=== PATIENT | male | born 1960 | race Caucasian/White ===

== ENCOUNTER 2018-03-27 07:42 | Emergency (ER) | payer OTHER ==
--- NOTE | 2018-03-27 08:12 | ER Report ---
History and Physical Time Seen By MD: 08:00 Hx. 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 Patient noticed that every activity he attempted causes more shortness of breath than normal. This was significantly worse with exertion. He has not had this before and has been through [place] before. He denies recent swelling in the legs, though he does travel frequently as truck sales representative. He has not had any chest pain, nausea, vomiting, fever, chills, cough. He has history of open heart surgery, last stress test was 4 years ago and was normal. He continues to smoke a pack a day. REVIEW OF SYSTEMS: Constitutional: No fever, no chills. Eyes: No discharge. ENT: No sore throat. Cardiovascular: No chest pain, no palpitations. Respiratory: above Gastrointestinal: No abdominal pain, no vomiting. Genitourinary: no dysuria Musculoskeletal: No back pain. Skin: No rashes. Neurological: No headache. Remainder of the 14 system rev: Yes Allergies: Coded Allergies: tramadol (Verified Allergy, Unknown, 03/27/18) Home Meds Active Scripts Prednisone (PREDNISONE) 20 Mg Tablet, 40 MG PO QDAY for 5 Days, #10 TAB Prov:DENICE CHAMPAGNE MD 03/27/18 Albuterol Sulfate 90 Mcg/Act (PROAIR HFA 90 MCG/ACT) 8.5 Gm Hfa.aer.ad, 2 PUFF IH Q4-6H for shortness of breath, #1 INHALER Prov:DENICE CHAMPAGNE MD 03/27/18 Reported Medications Amlodipine Besylate (AMLODIPINE BESYLATE) 5 Mg Tablet, 1 TAB PO QDAY, TAB 03/27/18 Atenolol (ATENOLOL) 50 Mg Tablet, 1 TAB PO QDAY, TAB 03/27/18 Lisinopril (LISINOPRIL) 40 Mg Tablet, 40 MG PO QDAY, TAB 03/27/18 Vardenafil Hcl (LEVITRA) 10 Mg Tablet, 10 MG PO QDAY, #10 TAB 03/27/18 Hydrochlorothiazide (HYDROCHLOROTHIAZIDE) 25 Mg Tablet, 1 TAB PO QDAY, TAB 03/27/18 Aspirin (ASPIRIN) 325 Mg Tablet, 325 MG PO Q4-6H PRN for PROPHYLACTIC, TAB 03/27/18 Hx Smoking: Yes Hx Alcohol Use: Yes (COUPLE TIMES A WEEK ) Constitutional Vital Sign - Last 24 Hours 03/27/18 03/27/18 03/27/18 03/27/18 07:42 07:46 07:47 07:57 Temp 98.2 Pulse ??? 75 66 Resp 20 B/P (MAP) 155/92 (113) 155/92 Pulse Ox 84 89 O2 Delivery Room Air 03/27/18 03/27/18 03/27/18 03/27/18 08:12 08:13 08:23 08:23 Pulse 57 56 Resp 17 B/P (MAP) 139/95 (110) Pulse Ox 91 91 O2 Delivery Nasal Cannula O2 Flow Rate 3.0 03/27/18 03/27/18 03/27/18 03/27/18 08:27 08:30 08:30 08:42 Pulse 57 56 ??? Resp 13 17 B/P (MAP) 135/93 (107) Pulse Ox 94 03/27/18 03/27/18 03/27/18 03/27/18 08:57 09:00 09:12 09:27 Pulse 56 55 54 Resp 20 14 23 B/P (MAP) 115/77 (90) Pulse Ox 89 89 88 03/27/18 03/27/18 03/27/18 03/27/18 09:30 09:35 09:50 10:00 Pulse 54 56 Resp 17 35 B/P (MAP) 135/94 (108) 133/104 (114) Pulse Ox 87 88 03/27/18 03/27/18 03/27/18 03/27/18 10:05 10:20 10:30 10:35 Pulse 54 54 54 Resp 24 30 17 B/P (MAP) 115/83 (94) Pulse Ox 88 87 03/27/18 03/27/18 03/27/18 03/27/18 10:35 10:40 10:50 10:54 Pulse 54 58 Resp 17 26 B/P (MAP) 130/93 (105) Pulse Ox 92 87 O2 Delivery Nasal Cannula O2 Flow Rate 3.0 03/27/18 03/27/18 03/27/18 03/27/18 11:00 11:05 11:20 11:30 Pulse ??? 57 Resp 25 B/P (MAP) 95/85 (88) 138/75 (96) Pulse Ox 90 03/27/18 03/27/18 03/27/18 03/27/18 11:35 11:50 12:00 12:05 Pulse 56 69 77 Resp 22 13 18 B/P (MAP) 129/85 (100) Pulse Ox 90 89 92 03/27/18 03/27/18 03/27/18 03/27/18 12:20 12:30 12:35 12:50 Pulse ??? 55 60 Resp 25 38 B/P (MAP) 128/85 (99) Pulse Ox 89 88 03/27/18 03/27/18 03/27/18 13:00 13:05 13:20 Pulse 56 ??? Resp 15 B/P (MAP) 122/93 (103) Pulse Ox 88 Physical Exam General Appearance: The patient is alert, has no immediate need for airway protection and no signs of toxicity. Eyes: Pupils equal and round no pallor or injection. ENT, Mouth: Mucous membranes are slightly dry Respiratory: There are no retractions, lungs are clear to auscultation. Cardiovascular: Regular rate and rhythm. no m/r/g Gastrointestinal: Abdomen is soft and non tender, no masses, bowel sounds normal. Neurological: alert, moves all ext Skin: Warm and dry, no rashes. Musculoskeletal: Extremities are nontender, nonswollen and have full range of motion. DIFFERENTIAL DIAGNOSIS: After history and physical exam differential diagnosis was considered for shortness of breath including but not limited to pulmonary infectious process, COPD, asthma, pulmonary embolus and congestive heart failure. Medical Decision Making Data Points Result Diagram: 03/27/18 0752 03/27/18 0752 Laboratory Hematology Test 03/27/18 07:52 Red Blood Count 6.20 M/uL (4.00-5.60) Mean Corpuscular Volume 89.0 fL (80.0-96.0) Mean Corpuscular Hemoglobin 30.7 pg (26.0-33.0) Mean Corpuscular Hemoglobin Concent 34.5 g/dL (32.0-36.0) Red Cell Distribution Width 14.2 % (11.5-14.5) Mean Platelet Volume 8.6 fL (7.2-11.1) Neutrophils (%) (Auto) 67.2 % (39.4-72.5) Lymphocytes (%) (Auto) 20.8 % (17.6-49.6) Monocytes (%) (Auto) 9.4 % (4.1-12.4) Eosinophils (%) (Auto) 1.8 % (0.4-6.7) Basophils (%) (Auto) 0.8 % (0.3-1.4) Nucleated RBC Relative Count (auto) 0.3 /100WBC Neutrophils # (Auto) 5.0 K/uL (2.0-7.4) Lymphocytes # (Auto) 1.5 K/uL (1.3-3.6) Monocytes # (Auto) 0.7 K/uL (0.3-1.0) Eosinophils # (Auto) 0.1 K/uL (0.0-0.5) Basophils # (Auto) 0.1 K/uL (0.0-0.1) Nucleated RBC Absolute Count (auto) 0.02 K/uL Prothrombin Time 13.5 seconds (12.0-14.4) Prothromb Time International Ratio 1.03 Activated Partial Thromboplast Time 30 seconds (23-35) D-Dimer Quantitative (PE/DVT) 0.38 ug/ml (0-0.50) Sodium Level 137 mmol/L (137-145) Potassium Level 3.4 mmol/L (3.5-5.0) Chloride Level 104 mmol/L (98-107) Carbon Dioxide Level 24 mmol/L (22-30) Blood Urea Nitrogen 16 mg/dl (9-21) Creatinine 1.00 mg/dl (0.66-1.25) Glomerular Filtration Rate Calc > 60.0 Random Glucose 174 mg/dl (75-110) Calcium Level 9.7 mg/dl (8.4-10.2) Total Bilirubin 1.6 mg/dl (0.2-1.3) Aspartate Amino Transf (AST/SGOT) 68 U/L (0-35) Alanine Aminotransferase (ALT/SGPT) 86 U/L (0-56) Alkaline Phosphatase 84 U/L (0-126) Troponin I < 0.012 ng/ml B-Type Natriuretic Peptide 55 pg/ml (0-100) Total Protein 7.9 g/dl (6.3-8.2) Albumin 4.4 g/dl (3.5-5.0) Lipase 120 U/L (23-300) Chemistry Test 03/27/18 07:52 White Blood Count 7.4 k/uL (4.5-11.0) Red Blood Count 6.20 M/uL (4.00-5.60) Hemoglobin 19.0 g/dL (14.0-18.0) Hematocrit 55.1 % (42.0-52.0) Mean Corpuscular Volume 89.0 fL (80.0-96.0) Mean Corpuscular Hemoglobin 30.7 pg (26.0-33.0) Mean Corpuscular Hemoglobin Concent 34.5 g/dL (32.0-36.0) Red Cell Distribution Width 14.2 % (11.5-14.5) Platelet Count 229 K/uL (150-450) Mean Platelet Volume 8.6 fL (7.2-11.1) Neutrophils (%) (Auto) 67.2 % (39.4-72.5) Lymphocytes (%) (Auto) 20.8 % (17.6-49.6) Monocytes (%) (Auto) 9.4 % (4.1-12.4) Eosinophils (%) (Auto) 1.8 % (0.4-6.7) Basophils (%) (Auto) 0.8 % (0.3-1.4) Nucleated RBC Relative Count (auto) 0.3 /100WBC Neutrophils # (Auto) 5.0 K/uL (2.0-7.4) Lymphocytes # (Auto) 1.5 K/uL (1.3-3.6) Monocytes # (Auto) 0.7 K/uL (0.3-1.0) Eosinophils # (Auto) 0.1 K/uL (0.0-0.5) Basophils # (Auto) 0.1 K/uL (0.0-0.1) Nucleated RBC Absolute Count (auto) 0.02 K/uL Prothrombin Time 13.5 seconds (12.0-14.4) Prothromb Time International Ratio 1.03 Activated Partial Thromboplast Time 30 seconds (23-35) D-Dimer Quantitative (PE/DVT) 0.38 ug/ml (0-0.50) Glomerular Filtration Rate Calc > 60.0 Calcium Level 9.7 mg/dl (8.4-10.2) Total Bilirubin 1.6 mg/dl (0.2-1.3) Aspartate Amino Transf (AST/SGOT) 68 U/L (0-35) Alanine Aminotransferase (ALT/SGPT) 86 U/L (0-56) Alkaline Phosphatase 84 U/L (0-126) Troponin I < 0.012 ng/ml B-Type Natriuretic Peptide 55 pg/ml (0-100) Total Protein 7.9 g/dl (6.3-8.2) Albumin 4.4 g/dl (3.5-5.0) Lipase 120 U/L (23-300) Coagulation Test 03/27/18 07:52 Prothrombin Time 13.5 seconds Prothromb Time International Ratio 1.03 Activated Partial Thromboplast Time 30 seconds D-Dimer Quantitative (PE/DVT) 0.38 ug/ml EKG/Imaging EKG Interpretation 12 lead EKG: Rhythm: sinus bradycardia [place]: normal QRS: normal ST segments: normal Monitor Interpretation: Sinus Bradycardia ED Course/Re-evaluation ED Course 57 y/o m with probable undiagnosed COPD presents with dyspnea. ED evluation performed to r/o acs, pe, pneumonia, or other emergent etiology. Initial w/up unremarkable, however pt is persistently hypoxic, with dyspnea on exertion. He does improve with nebulizer treatment. After discusseion of r/b of admission v d'c; I offered admission but pt wishes to go home; I arranged for ; rx'd nicotine patch to help with smoking cessation; pt understands that he is not to smoke on 02; pt is comfortable with d'c. plan. Decision to Disposition Date: Mar 27, 2018 Decision to Disposition Time: 13:00 Depart Departure Latest Vital Signs Vital Signs Date Time Temp Pulse Resp B/P (MAP) Pulse Ox O2 Delivery O2 Flow Rate FiO2 03/27/18 13:20 ??? 03/27/18 13:05 15 88 03/27/18 13:00 122/93 (103) 03/27/18 10:35 Nasal Cannula 3.0 03/27/18 07:47 98.2 Impression: Primary Impression: Dyspnea Additional Impression: Hypoxia Condition: Improved Disposition: HOME OR SELF-CARE New Scripts Prednisone (PREDNISONE) 20 Mg Tablet 40 MG PO QDAY for 5 Days, #10 TAB Prov: DENICE CHAMPAGNE MD 03/27/18 Albuterol Sulfate 90 Mcg/Act (PROAIR HFA 90 MCG/ACT) 8.5 Gm Hfa.aer.ad 2 PUFF IH Q4-6H for shortness of breath, #1 INHALER Prov: DENICE CHAMPAGNE MD 03/27/18 Patient Instructions: Hypoxia (ED) Additional Instructions: As we discussed, you may not smoke while on oxygen. I recommend you obtain nicotine patches [id number] and use as directed. Please follow-up with your primary doctor as soon as you return home for further pulmonary testing and determination of need to be on oxygen. Please return or go to the emergency department immediately for worsening shortness breath, development of chest pain, or any concerns Problem Qualifiers Primary Impression: Dyspnea Dyspnea type: unspecified Qualified Codes: R06.00 - Dyspnea, unspecified DENICE CHAMPAGNE MD Mar 27, 2018 08:12
[2018-03-27] MEDS ORDERED: ALBUTEROL/IPRATROPIUM 3 ML NEB NEB ONE ×2 (08:15→09:55)
[2018-03-27 08:16] LABS: PLATELET COUNT, AUTOMATED 229 K/uL (150-450)
[2018-03-27] MEDS ORDERED: ASPI-757 PO (08:19)
[2018-03-27] MEDS ORDERED: HYDR-2966 PO (08:19)
[2018-03-27] MEDS ORDERED: LISI-374 PO (08:19)
[2018-03-27] MEDS ORDERED: AMLO-125 PO (08:19)
[2018-03-27] MEDS ORDERED: VARD10TA20 PO (08:19)
[2018-03-27] MEDS ORDERED: ATEN-1 PO (08:19)
[2018-03-27 08:27] LABS: INR 1.03
--- NOTE | 2018-03-27 08:34 | EKG ---
FACILITY: [facility] PATIENT NAME: TRISTIN SIMENTAL : [id number] MR: [id number]: [id number] EXAM DATE: ORDERING PHYSICIAN: DENICE CHAMPAGNE TECHNOLOGIST: Test Reason : dysnea Blood Pressure : / mmHG Vent. Rate : 058 BPM Atrial Rate : 058 BPM P-R Int : 188 ms QRS Dur : 104 ms QT Int : 438 ms P-R-T Axes : 025 096 092 degrees QTc Int : 429 ms Sinus bradycardia with sinus arrhythmia Otherwise normal ECG Confirmed by Teodoro Deleon ([id number]) on 03/27/2018 11:08:07 PM Referred By: Confirmed By:Teodoro Ernandez
--- NOTE | 2018-03-27 09:17 | RADIOLOGY IMAGING REPORT ---
FACILITY: [facility] PATIENT NAME: Song Yanez : 1960 MR: [id number] V: [id number] EXAM DATE: ORDERING PHYSICIAN: DENICE CHAMPAGNE TECHNOLOGIST: Location: [facility] Patient: Song Yanez : 1960 Visit/Account:[id number] Date of Sevice: 03/27/2018 EXAMINATION: PA and Lateral Chest 03/27/2018 8:07 AM HISTORY: dyspnea COMPARISON: None available FINDINGS: Cardiomediastinal contours: Normal heart size. Clips from CABG. Aorta is atherosclerotic. Lungs and pleura: Increased reticular markings in both lungs with hyperinflation. No focal consolida tion. Pleural spaces are clear. Bones/soft tissues: No acute finding. Sternotomy wires are intact. Right upper quadrant cholecystectomy clips. IMPRESSION: 1. Hyperinflated lungs with increased and coarsened interstitial markings which are likely chronic a lthough without comparison imaging acute atypical infiltrate or interstitial edema cannot be excluded , although there are no clear Candis B lines to support edema. 2. Atherosclerosis with previous CABG. Report Dictated By: Al Mcdonough MD at 03/27/2018 9:11 AM Report E-Signed By: Al Mcdonough MD at 03/27/2018 9:14 AM WSN:[email or web address]
[2018-03-27] MEDS ORDERED: predniSONE 20 MG TAB PO ONE (09:55)
[2018-03-27] MEDS ORDERED: NICOTINE 21 MG/24 HR PATCH TD ONE (11:35)
[2018-03-27 13:00] VITALS: BP 122/93
[2018-03-27] MEDS ORDERED: ALBU8.5H IH (13:06)
[2018-03-27] MEDS ORDERED: PRED20TA6 PO (13:06)
== END 2018-03-27 13:18 | disposition home or self-care (01) ==
LOC: ER 08:05
DX: R06.02 Shortness of breath (principal); R09.02 Hypoxemia; F17.210 Nicotine dependence, cigarettes, uncomplicated
CPT/HCPCS: 71046; 83690; 83880; 84484; 85025; 85379; 85610; 85730; 93005; 94640; 99284; J7512; J7620; 82040; 82247; 82310; 82374; 82435; 82565; 82947; 84075; 84132; 84155; 84295; 84450; 84460; 84520